=== PATIENT | male | born 2000 | race Caucasian/White ===

== ENCOUNTER 2022-01-06 12:05 | Emergency (ER) | payer MEDICAID ==
[~2022-01-06] VITALS: Ht 188 cm; Wt 113.6 kg
[2022-01-06] MEDS ORDERED: IBUPROFEN 400 MG TABLET PO ONE (12:45)
[2022-01-06] MEDS ORDERED: HYDROCODONE/ACETAMINOPHEN 5-325 MG TABLET PO ONE (12:45)
[2022-01-06 13:06] VITALS: BP 130/76
[2022-01-06] MEDS ORDERED: GABA-1181 PO (13:46)
[2022-01-06] MEDS ORDERED: NAPR-1025 PO (13:46)
[2022-01-06] MEDS ORDERED: METH-659 PO (13:46)
== END 2022-01-06 13:53 | disposition home or self-care (01) ==
LOC: EMS 12:05
DX: S86.811A Strain of other muscle(s) and tendon(s) at lower leg level, right leg, initial encounter (principal); S90.31XA Contusion of right foot, initial encounter; X50.1XXA Overexertion from prolonged static or awkward postures, initial encounter; Y93.89 Activity, other specified; Y92.89 Other specified places as the place of occurrence of the external cause; Y99.8 Other external cause status
CPT/HCPCS: 99284; 73610-TC; 73630-TC; Z7502; Z7610